=== PATIENT | female | born 2000 | race Hispanic/Latino ===

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

== ENCOUNTER 2023-02-23 20:45 | Emergency (ER) | payer MEDICAID ==
[~2023-02-23] VITALS: Ht 152.4 cm; Wt 52.1 kg
[2023-02-23] VITALS (9 sets, daily range): BP systolic 96–126; BP diastolic 63–88
== END 2023-02-23 22:36 | disposition home or self-care (01) ==
LOC: ED 20:45
DX: B34.9 Viral infection, unspecified (principal); Z20.822 Contact with and (suspected) exposure to COVID-19